=== PATIENT | male | born 1955 | race Caucasian/White ===

== ENCOUNTER 2019-12-11 13:58 | Outpatient (CLI) | payer BC ==
[~2019-12-11 13:58] MED LIST: Iopamidol-370 76% 500 ML 1 ML ONE
--- NOTE | 2019-12-11 20:39 | CT ---
CTA OF THE ABDOMEN AND PELVIS AND BILATERAL LOWER EXTREMITIES FOR RUNOFF: 12/11/19 HISTORY: Right leg swelling when driving. TECHNIQUE: Multiple contiguous axial images were obtained in a CTA of the abdomen, pelvis, and bilateral lower e xtremities for runoff. 3D sagittal and coronal MIP reformats were performed. FINDINGS: A 9 mm nodule seen in the right lower lobe that is well circumscribed. A smaller 4 mm nodule is seen in the right middle lobe. Calcified gallstones are seen in the gallbladder. The liver, kidneys, adrenal glands, spleen, and israel creas are unremarkable. No free air, free fluid, or stranding changes are seen in the abdomen or pelv is. The large and small bowel are unremarkable. No abdominal or pelvic lymphadenopathy are seen. Dege nerative changes are seen in the spine. There is a 3.0 cm fat containing left inguinal hernia. No significant atherosclerotic disease is seen in the aorta. The celiac trunk, SMA, and DAVID are zimmerman nt without significant atherosclerotic disease. A single renal artery is seen on the left and two junito al arteries are seen on the right. No significant atherosclerotic disease is seen in the renal arteri es. The aorta bifurcates into a normal appearing common iliac arteries which bifurcate into a normal appe aring internal and external iliac arteries. The common femoral arteries show no significant atherosclerotic disease on either side. These branch in a normal appearing profunda femoral arteries and superficial femoral arteries. No significant athe rosclerotic disease is seen in either profunda femoral or superficial femoral artery. The popliteal arteries demonstrate minimal bilateral atherosclerotic disease behind the knee. There i s bilateral three vessel runoff down to the level of the ankle without significant atherosclerotic di sease in the distal vessels. IMPRESSION: 1. No significant CTA abnormality of either leg. 2. Cholelithiasis. 3. Left inguinal hernia. 4. Right sided pulmonary nodule should be followed with a repeat chest CT in one year to ensure stability. POS: VITO
== END 2019-12-11 13:59 | disposition home or self-care (01) ==
LOC: BICCT 13:58
PROVIDERS: ATTEND Family Medicine
DX: M79.89 Other specified soft tissue disorders (principal); K80.20 Calculus of gallbladder without cholecystitis without obstruction; R91.1 Solitary pulmonary nodule; K40.90 Unilateral inguinal hernia, without obstruction or gangrene, not specified as recurrent
CPT/HCPCS: 75635; Q9967